=== PATIENT | male | born 1975 | race Caucasian/White ===

== ENCOUNTER → 2022-10-29 08:16 | Outpatient (CLI) | payer OTHER, SELFPAY ==
--- NOTE | ~2022-10-29 | US_ITS ---
Testicular ultrasound with doppler. Indication: Disorder millimeters genitalia. Technique: Real-time sonography the scrotum was performed. Color flow Doppler and Doppler spectral an alysis were performed. Findings: The testes are homogeneous in echotexture bilaterally. There is no evidence of an intrates ticular mass. The right testis measures 4.5 x 2.5 x 3.3 cm and the left 4.2 x 2.3 x 3.6 cm. There is color-flow seen to both testes. Arterial and venous spectral waveforms are seen in both testes. There is no sonographic evidence of torsion. The head of the epididymis is visualized bilaterally and is within normal limits. Small left hydrocele present. Impression: No testicular mass or torsion. Small left hydrocele. Reviewed, dictated and finalized at [facility]. E WINDER Impression: No testicular mass or torsion. Small left hydrocele.
== END ==
PROVIDERS: PCP Clinical Nurse Specialist; Visit Provider Clinical Nurse Specialist
DX: N50.89 Other specified disorders of the male genital organs (principal); N43.3 Hydrocele, unspecified
CPT/HCPCS: 76870; 93976